=== PATIENT | female | born 1995 | race American Indian/Alaskan Native ===

== ENCOUNTER 2017-10-10 00:18 | Emergency (ER) | payer OTHER ==
[2017-10-10 02:20] LABS: Hemoglobin 12.6 gm/dl (10.1-14.3); Mean Corpuscular HGB Conc 34 % (30-34); Mean Corpuscular Hemoglobin 34 pg (28-32); Mean Corpuscular Volume 98 fl (79-97); Platelet Count 249 K/mm3 (140-440); Red Blood Count 3.77 M/mm3 (3.65-5.03)
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
[2017-10-10 02:47] LABS: Alanine Aminotransferase 21 units/L (7-56); Albumin 4.4 g/dL (3.9-5); BUN/Creatinine Ratio 14; Blood Urea Nitrogen 10 mg/dL (7-17); Calcium 9.5 mg/dL (8.4-10.2); Hemolysis Index 12
[2017-10-10 03:26] LABS: Band Neutrophils # (Manual) 0.1 K/mm3; Basophils % (Manual) 0 % (0.0-1.8); Eosinophils % (Manual) 0 % (0.0-4.3); Monocytes % (Manual) 2.5 % (0.0-7.3); Platelet Estimate Consistent w Auto; Total Cells Counted 200
[2017-10-10 04:38] LABS: Bacteria,Urine 1+ /HPF (Negative); Bilirubin,Urine NEG (Negative); Blood,Urine NEG (Negative); Color,Urine Yellow (Yellow); Mucus,Urine FEW /HPF; Protein,Urine <15 mg/dL mg/dL (Negative); Urobilinogen,Urine < 2.0 mg/dL (<2.0)
[2017-10-10] MEDS ORDERED: PHENERGAN PO ONE (05:52)
[2017-10-10] MEDS ORDERED: NORCO 5/325 PO ONE (05:52)
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
[2017-10-10 08:40] VITALS: BP 118/76
== END 2017-10-10 08:40 | disposition home or self-care (01) ==
LOC: ED 00:18
DX: S76.012A Strain of muscle, fascia and tendon of left hip, initial encounter (principal); V47.6XXA Car passenger injured in collision with fixed or stationary object in traffic accident, initial encounter; N39.0 Urinary tract infection, site not specified; Y93.89 Activity, other specified; Y92.89 Other specified places as the place of occurrence of the external cause; Y99.8 Other external cause status
CPT/HCPCS: 36415; 72190; 74019; 74177; 80053; 81001; 84703; 85007; 85025; 87086; 99284; Q9967; Q0169